=== PATIENT | male | born 1960 | race Caucasian/White ===

== ENCOUNTER → 2016-04-27 | Outpatient (REF) | payer BC | LOC: M LAB REF 17:01 | PROVIDERS: ATTEND Internal Medicine | DX: N52.9 Male erectile dysfunction, unspecified (principal) ==

== ENCOUNTER 2019-08-14 19:50 | Inpatient (IN) | payer BC ==
[~2019-08-14] VITALS: Ht 170.2 cm; Wt 72.1 kg
[~2019-08-14 19:50] MED LIST: HumaLOG INSULIN (NovoLOG) PER UNIT XX SCH
[2019-08-14] MEDS ORDERED: GLUC3SPR (19:59)
[2019-08-14] MEDS ORDERED: SILD100T PO (19:59)
[2019-08-14] MEDS ORDERED: ATOR40TA75 PO (19:59)
[2019-08-14] MEDS ORDERED: LISI-538 PO (19:59)
[2019-08-14] MEDS ORDERED: INSU100V2 INJ (19:59)
[2019-08-14] MEDS ORDERED: ASPI81CH33 PO (19:59)
[2019-08-14 20:25] LABS: BASO % 0.3 % (0.0-1.0); EOS % 0.2 % (0.0-3.0); HEMATOCRIT 41.4 % (42.0-52.0); HEMOGLOBIN 14.2 g/dl (13.5-17.5); LYMPH # 1.1 10^3/uL (1.5-5.0); LYMPH % 9.5 % (24.0-44.0); MEAN CORPUSCULAR HEMOGLOBIN 29.1 pg (27.0-33.0); MEAN CORPUSCULAR HGB CONC 34.3 g/dl (32.0-36.5); MEAN CORPUSCULAR VOLUME 84.8 fl (80.0-96.0); MONO # 0.6 10^3/uL (0.0-0.8); MONO % 4.9 % (0.0-5.0); NEUTROPHILS # 10.2 10^3/uL (1.5-8.5); NEUTROPHILS % 84.8 % (36.0-66.0); PLATELET COUNT, AUTOMATED 228 10^3/uL (150-450); RED BLOOD COUNT 4.88 10^6/uL (4.30-6.10)
[2019-08-14] MEDS ORDERED: METOCLOPRAMIDE INJ 10MG/2ML VIAL (J2765 PER 1) IV ONE (20:30)
[2019-08-14] MEDS ORDERED: GI COCKTAIL 50ML BTL(HYOSCYAMINE/MAALOX/LIDOCAINE VISCOUS)(1:3:1) PO ONE (20:30)
[2019-08-14 20:48] LABS: ALBUMIN 3.7 GM/DL (3.2-5.2); BILIRUBIN,DIRECT 0.2 MG/DL (0.0-0.2); BILIRUBIN,TOTAL 0.6 MG/DL (0.2-1.0); TOTAL PROTEIN 6.7 GM/DL (6.4-8.2)
--- NOTE | 2019-08-14 21:50 | REPVR ---
PROCEDURE INFORMATION: Exam: US Abdomen Limited, Right Upper Quadrant Exam date and time: 08/14/2019 9:40 PM Age: 58 years old Clinical indication: Abdominal pain; Acute; Additional info: Ruq pain TECHNIQUE: Imaging protocol: Real-time ultrasound of the abdomen with image documentation. Examination was focused on the right upper quadrant. COMPARISON: No relevant prior studies available. FINDINGS: Liver: The echogenicity of the liver is within normal limits. No liver lesion is identified from the images obtained. The contour of the liver is smooth. Gallbladder: The gallbladder is normal in appearance. No stones, masses, gallbladder wall thickening, or pericholecystic fluid are noted. No sonographic Hung's sign was reported by the fibre technologist. Common bile duct: The common bile duct is normal caliber measures 3 mm in diameter at the level of the rae hepatis. Pancreas: The imaged portion of the pancreas is unremarkable. The tail of pancreas is obscured by gas in the stomach and bowel. Right kidney: The right kidney is normal in appearance and measures 10.6 cm in length. There is no renal cortical thinning. The renal cortical echogenicity is within normal limits. No renal lesion is seen. There is no hydronephrosis. No obvious stones are seen in the renal collecting system. Intraperitoneal space: No free fluid is seen from the images obtained. IMPRESSION: No sonographic abnormality seen in the right upper quadrant of the abdomen. Electronically signed by: Kristian Moy On 08/14/2019 21:49:49 PM
[2019-08-14] MEDS ORDERED: MORPHINE 2 MG/ML 1ML VIAL (J2270) IV ONE (22:00)
[2019-08-14] MEDS ORDERED: ISOVUE-370 76% 100ML VIAL As Ordered ONE (22:02)
--- NOTE | 2019-08-14 22:46 | REPVR ---
PROCEDURE INFORMATION: Exam: CT Abdomen And Pelvis With Contrast Exam date and time: 08/14/2019 10:11 PM Age: 58 years old Clinical indication: Abdominal pain; Additional info: Upper abdominal pain; R/O colitis vs diverticulitis TECHNIQUE: Imaging protocol: Computed tomography of the abdomen and pelvis with intravenous contrast. Radiation optimization: All CT scans at this facility use at least one of these dose optimization techniques: automated exposure control; mA and/or kV adjustment per patient size (includes targeted exams where dose is matched to clinical indication); or iterative reconstruction. Contrast material: ISO 370; Contrast volume: 100 ml; Contrast route: IV; COMPARISON: GALLBLADDER US 08/14/2019 9:23 PM FINDINGS: Heart: No cardiomegaly or pericardial effusion. Lungs: The imaged portions of the lung bases are clear. The lungs were not fully imaged. Diaphragm: Intact. Liver: The attenuation of the liver is lower compared to the spleen, which can be seen with fatty liver infiltration. No liver lesion is seen. The contour of the liver is smooth. No hepatomegaly is noted. Gallbladder and bile ducts: No calcified gallstones are noted. No gallbladder wall thickening, pericholecystic fluid, or pericholecystic inflammatory changes are identified. No dilation of the bile ducts is noted. No calcified stones are seen in the common bile duct. Pancreas: Normal. No dilation of the main pancreatic duct is noted. There is no inflammatory fat stranding around the pancreas to suggest acute pancreatitis. Spleen: Normal. No splenomegaly is noted. Adrenals: Normal. No adrenal mass is noted. Kidneys and ureters: The kidneys are normal in appearance. No renal lesion is noted. No stones are noted in the kidneys or ureters. There is no hydronephrosis or hydroureter. There are no wedge-shaped areas of low attenuation in the kidneys to suggest pyelonephritis. There is no renal abscess or perinephric fluid collection. Stomach and bowel: The stomach is unremarkable. There are dilated loops of jejunum in the left side of the abdomen with air-fluid levels measuring up to 3.4 cm in diameter and with associated mesenteric edema. There is an abrupt transition point from dilated to nondilated jejunum in the left upper quadrant of the abdomen, and the distal decompressed loops of jejunum have thickened landis (image 27 of the coronal series 202) and this may be secondary to a jejunitis. There is colonic diverticulosis without evidence for diverticulitis. The descending colon and sigmoid colon are decompressed, limiting there optimal evaluation. Appendix: Normal. There is no evidence for appendicitis. Intraperitoneal space: There is a moderate amount of free fluid in the pelvis. Retroperitoneal space: No fluid collection. No mass. Vasculature: The abdominal aorta is patent, normal in caliber, and there is no dissection. The iliac arteries, common femoral arteries, renal arteries, celiac artery, superior mesenteric artery, and inferior mesenteric artery are patent. There are mild atherosclerotic calcifications. The common femoral veins, iliac veins, inferior vena cava, hepatic veins, portal veins, splenic vein, superior mesenteric vein, inferior mesenteric vein, and renal veins are patent. Lymph nodes: No enlarged lymph nodes. Bladder: There is thickening of the wall of the partially distended urinary bladder. No calculi are noted in the bladder. Reproductive: There are calcifications in the prostate gland. The seminal vesicles are unremarkable. Bones/joints: There is no fracture or dislocation. No suspicious osteolytic or osteoblastic lesion. Soft tissues: Unremarkable. No hernia. No soft tissue fluid collection. IMPRESSION: 1. Dilated loops of jejunum in the left side of the abdomen with an abrupt transition point in the left upper quadrant of the abdomen and there is thickening of the distal decompressed loops of jejunum. These findings may be secondary to a jejunitis causing an ileus or small-bowel obstruction more proximally. 2. Thickening of the wall of the urinary bladder, which may be secondary to its partially distended state, bladder wall hypertrophy, or cystitis. Correlation with urinalysis is suggested. 3. Colonic diverticulosis without evidence for diverticulitis. 4. Moderate amount of free fluid in the pelvis. Electronically signed by: Kristian Moy On 08/14/2019 22:45:57 PM
[2019-08-14] MEDS ORDERED: CIPROFLOXACIN 400 MG in IV 1 EA IV ONE (23:15)
[2019-08-14] MEDS ORDERED: metroNIDAZOLE 500 MG in IV 1 EA IV ONE (23:15)
--- NOTE | 2019-08-14 23:19 | HPEPDOC ---
[facility] Medical History & Physical Date of Admission August 14, 2019 Date of Service: August 14, 2019 Attending Physician: Halley Miles MD History and Physical CHIEF COMPLAINT: Abdominal pain HISTORY OF PRESENT ILLNESS: Patient is a 58-year-old male with past mental history of diabetes type 1, hypertension, peripheral neuropathy, erectile dysfunction who presented to [facility] with the chief complaint of increasing abdominal pain since this afternoon. The patient states abdominal pain starting 3-3:30 PM, new, diffuse across the abdomen, 8/10 on pain scale, intermittent, sharp in c haracter. Associated symptoms include heart burn, nausea without vomiting. Patient states to be drinking enough fluid at home. Last BM 11 AM, not passing gas since then but has burping. The patient denies ROS below. In ER, VS showed BP uncontrolled 175->200/70-90's, HR 90-110. Patient appeared anxious. CT abd/pelvis showed 1. Dilated loops of jejunum in the left side of the abdomen with an abrupt transition point in the left upper quadrant of the abdomen and there is thickening of the distal decompressed loops of jejunum, findings may be secondary to a jejunitis causing an ileus or small-bowel obstruction more proximally. There was also thickening of the wall of the urinary bladder, which may be secondary to its partially distended state, bladder wall hypertrophy, or cystitis. Correlation with UA was suggested. A moderate amount of free fluid in the pelvis as seen. WBC 12. Surgery was called and recommended NG tube with LIS. On exam, patient's abdominal pain was minimal, he denied nausea. Patient admits to having a lot of burping but no flatulance since this afternoon. Patient was admitted for further treatment of jejunitis, ileus vs. SBO. REVIEW OF SYSTEMS: CONSTITUTIONAL: Denies lack of energy, unexplained weight gain or weight loss, loss of appetite, fever, night sweats EYES: Denies eye drainage, eye pain, visual changes, dry/irritated eye EARS, NOSE, MOUTH, THROAT: Denies difficulty hearing, ringing in ears, mouth sores, loose teeth, sore throat, facial numbness or pain NECK: Denies swollen glands CARDIOVASCULAR: Denies irregular heartbeat, racing heart, chest pains, swelling of feet or legs, pain in legs with walking RESPIRATORY: Denies shortness of breath, night sweats, wheezing, sputum production, oxygen at home, coughing up blood, cough lasting > 1 month GASTROINTESTINAL: Denies constipation, bloody stool, diarrhea, vomiting GENITOURINARY: Denies painful urination, bloody urine, frequent urination, urgency, leaking urine, impotence MUSCULOSKELETAL: Denies joint pain, muscle pain, leg swelling INTEGUMENTARY: Denies rash, itching, new skin lesion, change in existing skin lesion, hair loss or increase, breast changes. NEUROLOGICAL: Denies headaches, dizziness, difficulty walking, numbness or tingling PSYCHIATRIC: Denies depression, anxiety, recurrent bad thoughts, mood swings, hallucinations PAST MEDICAL HISTORY: 1. Peripheral neuropathy 2. DM type I 3. HTN questionable 4. Erectile dysfunction 5. Environmental allergies PAST SURGICAL HISTORY: 1. Hernia repair x 3 FAMILY HISTORY: Father: healthy, Alive Mother: healthy, Alive. Siblings: Brother #1: prostate cancer, Alive. Brother #2: Type II DM SOCIAL HISTORY: Prior smoker, quit 3 months ago. Smoked cigarettes and cigars for > 50 years. Social alcohol use, denies illicit use. Lives with his in the surrounding area. Currently employed. No handicaps. Full Code. ALLERGIES: Please see below. HOME MEDICATIONS: Please see below. PHYSICAL EXAMINATION: CONSTITUTIONAL: Appears anxious, AAO x 3 EYES: PERRLA, EOM intact HENT, MOUTH: Normocephalic, atraumatic, moist mucous membranes, NG tube in place NECK: SUPPLE, no JVD, no lymphadenopathy, no carotid bruit CV: Regular rate and rhythm, S1S2 normal, no murmurs/rubs/gallops RESPIRATORY: Clear to auscultation bilaterally, no rales/rhonchi/wheezes GI: Insulin pump in LLQ, mild tenderness in the bilateral lower quadrants. Implanted glucometer present in the RUQ. BS positive in 4 quadrants, soft, nondistended, no rebound or guarding, no organomegaly : Deferred MUSCULOSKELETAL: Normal ROM. No cyanosis, clubbing, swelling, joint deformity, extremity edema INTEGUMENTARY: Intact, no rashes, no lesions, no erythema NEUROLOGIC: Cranial Nerves II-XII are intact, no focal deficits PSYCHIATRIC: Anxious mood LABORATORY DATA: Please see below IMAGING: CT abd/pelvis with contrast: 1. Dilated loops of jejunum in the left side of the abdomen with an abrupt transition point in the left upper quadrant of the abdomen and there is thickening of the distal decompressed loops of jejunum. These findings may be secondary to a jejunitis causing an ileus or small-bowel obstruction more proximally. 2. Thickening of the wall of the urinary bladder, which may be secondary to its partially distended state, bladder wall hypertrophy, or cystitis. Correlation with urinalysis is suggested. 3. Colonic diverticulosis without evidence for diverticulitis. 4. Moderate amount of free fluid in the pelvis ASSESSMENT: 58 y/o M admitted for further treatment of jejunitis, ileus vs. SBO. PLAN: 1. Abdominal pain 2/2 to jejunitis causing ileus vs. SBO. Pain has significantly improved. NPO. NG tube to intermittent suction, IVFs at 125 cc/hr, zofran PRN, Ciprofloxacin, flagyl IV. Surgery consulted. 2. DM type I. BS 200's. Patient was very hesitant to stop insulin pump, discussed with pharmacy. Will use home humalog insulin pump, uses 0.8 U/hr. Q6hr finger sticks, hypoglycemic protocol initiated as patient is currently NPO. 3. HTN, uncontrolled. Patient describes white coat syndrome type anxiety upon entering hospitals and clinics. states BP is always elevated and then after some time will improve. Hydralazine PRN for systolic BP >180 mmHg. 4. Urinary bladder wall thickening on CT, r/o cystitis. F/u UA. 5. GI px. PPI IV. 6. DVT px. Enoxaparin SC daily. DISPOSITION: Admitted under inpatient status. Surgery consulted. Plan is discharge home when medically improved. Vital Signs Vital Signs Date Time Temp Pulse Resp B/P (MAP) Pulse Ox O2 Delivery O2 Flow Rate FiO2 08/14/19 21:20 90 16 170/80 (110) 98 08/14/19 19:53 98.0 Room Air Laboratory Data Labs 24H Laboratory Tests 2 08/14/19 20:18: Immature Granulocyte % (Auto) 0.3, Neutrophils (%) (Auto) 84.8H, Lymphocytes (%) (Auto) 9.5L, Monocytes (%) (Auto) 4.9, Eosinophils (%) (Auto) 0.2, Basophils (%) (Auto) 0.3, Neutrophils # (Auto) 10.2H, Lymphocytes # (Auto) 1.1L, Monocytes # (Auto) 0.6, Eosinophils # (Auto) 0.0, Basophils # (Auto) 0.0, Nucleated Red Blood Cells % (auto) 0.0, Total Bilirubin 0.6, Direct Bilirubin 0.2, Aspartate Amino Transf (AST/SGOT) 18, Alanine Aminotransferase (ALT/SGPT) 40, Alkaline Phosphatase 60, Total Protein 6.7, Albumin 3.7, Albumin/Globulin Ratio 1.2, Lipase 50L 08/14/19 20:32: POC Glucose (Misc Panel) 213H, POC Sodium (Misc Panel) 136, POC Potassium (Misc Panel) 3.9, POC Chloride (Misc Panel) 98, POC Total CO2 (Misc Panel) 23.0, POC Blood Urea Nitrogen (Misc Panel 16, POC Ionized Calcium (Misc Panel) 4.8, POC Creatinine (Misc Panel) 1.0, POC Hematocrit (Misc Panel) 41.0 CBC/BMP Laboratory Tests 08/14/19 20:18 Home Medications Scheduled Aspirin (Aspirin) 81 Mg Tab.chew, 81 MG PO DAILY Atorvastatin Calcium (Atorvastatin Calcium) 40 Mg Tablet, 20 MG PO DAILY Glucagon (Baqsimi) 3 Mg [place], 3 MG NA ASDIRECTED Insulin Lispro (Insulin Lispro) 100 Unit/1 Ml Vial, 1 DOSE INJ ASDIRECTED PATIENT USES PUMP Lisinopril (Lisinopril) 20 Mg Tablet, 20 MG PO DAILY Scheduled PRN Sildenafil Citrate (Sildenafil Citrate) 100 Mg Tablet, 50 MG PO ASDIRECTED PRN for ERECTILE DYSFUNCTION Allergies Coded Allergies: No Known Allergies (Verified , 09/01/11) A-FIB/CHADSVASC A-FIB History Current/History of A-Fib/PAF?: No Current PO Anticoag Therapy: No Age/Risk Factor Scoring CHADSVASC: CHADSVASC Response (Comments) Value Age Risk Factor Age < 65 years old 0 Gender Risk Factor Male 0 Hx of CHF No 0 Hx of HTN Yes 1 Hx of Stroke/TIA/or VTE No 0 Hx of Diabetes Yes 1 Hx of Vascular Disease No 0 Total 2 Treatment Treatment ordered: Other Other anticoagulant ordered: enoxaparin Halley Miles MD August 14, 2019 23:19
[2019-08-15] MEDS ORDERED: [UNRECOGNIZED DRUG - OTHER] XX SCH (00:15)
[2019-08-15] MEDS ORDERED: ONDANSETRON 4MG/2ML VIAL IV PRN (00:15)
[2019-08-15] MEDS ORDERED: hydrALAZINE 20MG/ML 1ML VIAL (J0360 PER 20MG) IV PRN (00:15)
[2019-08-15] MEDS ORDERED: DEXTROSE 50% 50 ML SYRINGE IV PRN (00:15)
[2019-08-15] MEDS ORDERED: GLUCOSE 4GM CHEW TABLET PO PRN (00:15)
[2019-08-15] MEDS ORDERED: GLUCAGON INJ 1MG VIAL SC PRN (00:15)
[2019-08-15 01:23] LABS: INR 1.04; PROTHROMBIN TIME 13.3 SECONDS (11.8-14.0)
[2019-08-15 01:24] LABS: PARTIAL THROMBOPLASTIN TIME 24.3 SECONDS (25.0-38.4)
[2019-08-15 01:28] VITALS: BP 170/72
[2019-08-15] MEDS: NS 1,000 ML IV SCH ×4 (01:50→22:58)
[2019-08-15 04:48] LABS: APPEARANCE, URINE CLEAR (CLEAR); BACTERIA, URINE AUTO NEGATIVE (NEGATIVE); BILIRUBIN, URINE AUTO NEGATIVE (NEGATIVE); BLOOD, URINE BLOOD NEGATIVE (NEGATIVE); COLOR, URINE YELLOW (YELLOW); GLUCOSE, URINE (UA) AUTO 3+ mg/dL (NEGATIVE); KETONE, URINE AUTO 2+ mg/dL (NEGATIVE); LEUKOCYTE ESTERASE, URINE AUTO NEGATIVE (NEGATIVE); NITRITE, URINE AUTO NEGATIVE (NEGATIVE); PROTEIN, URINE AUTO NEGATIVE (NEGATIVE); RBC, URINE AUTO 0 /HPF (0-3); SPECIFIC GRAVITY URINE AUTO 1.042 (1.002-1.035); SQUAMOUS EPITHELIAL CELL UR AU 0 /HPF (0-6); UROBILINOGEN, URINE AUTO 0.2 mg/dL (0.0-2.0); WBC, URINE AUTO 0 /HPF (0-3)
[2019-08-15 05:05] LABS: HEMATOCRIT 41.7 % (42.0-52.0); HEMOGLOBIN 14.8 g/dl (13.5-17.5); MEAN CORPUSCULAR HEMOGLOBIN 30.4 pg (27.0-33.0); MEAN CORPUSCULAR HGB CONC 35.5 g/dl (32.0-36.5); MEAN CORPUSCULAR VOLUME 85.6 fl (80.0-96.0); PLATELET COUNT, AUTOMATED 234 10^3/uL (150-450); RED BLOOD COUNT 4.87 10^6/uL (4.30-6.10); WHITE BLOOD COUNT 16.8 10^3/uL (4.0-10.0)
[2019-08-15] MEDS ORDERED: ACETAMINOPHEN TAB 650MG DOSE (2X325MG) PO PRN (05:30)
[2019-08-15 05:33] LABS: ALBUMIN 3.6 GM/DL (3.2-5.2); ALT/SGPT 31 U/L (12-78); BILIRUBIN,TOTAL 0.9 MG/DL (0.2-1.0); BLOOD UREA NITROGEN 16 MG/DL (7-18); CALCIUM LEVEL 8.7 MG/DL (8.8-10.2); CARBON DIOXIDE LEVEL 22 MEQ/L (21-32); CHLORIDE LEVEL 99 MEQ/L (98-107); GLOMERULAR FILTRATION RATE > 60.0 (>49); GLUCOSE, FASTING 272 MG/DL (70-100); SODIUM LEVEL 134 MEQ/L (136-145); TOTAL PROTEIN 6.7 GM/DL (6.4-8.2)
[2019-08-15] MEDS: PANTOPRAZOLE 40MG VIAL (C9113 PER 1) IV SCH (05:41)
[2019-08-15 08:00] VITALS: BP 180/84
--- NOTE | 2019-08-15 08:03 | ECGEPIP ---
[facility] - ED Test Date: 2019-08-14 Pat Name: KHOA VALLES Department: Room: - Gender: Male Disaster Director: KHANH : 1960 Requested By: GILSON Gerardo Order Number: [id number] Reading MD: Oh Fuentes Measurements Intervals [place] Rate: 79 P: 44 KS: 149 QRS: 43 QRSD: 90 T: 51 QT: 368 QTc: 423 Interpretive Statements SINUS RHYTHM NO PRIORS FOR COMPARISON Electronically Signed on 08-15-2019 8:03:14 EDT by Oh Fuentes
[2019-08-15] MEDS ORDERED: ENOXAPARIN 40MG/0.4ML SYRINGE (J1650 PER 10MG) SC SCH (09:00)
[2019-08-15] MEDS ORDERED: MORPHINE 10 MG/ML 1ML VIAL (J2270) IV ONE (09:00)
[2019-08-15] MEDS ORDERED: KETOROLAC 30 MG/ML 1ML VIAL IV PRN (09:00)
[2019-08-15] MEDS ORDERED: MORPHINE 4 MG/ML 1ML VIAL/SYRINGE (J2270) IV PRN (09:00)
[2019-08-15] MEDS: NITROGLYCERIN 2% OINT 1 GM *U/D* PKT TOP SCH ×3 (09:32→17:38)
[2019-08-15] MEDS: metroNIDAZOLE 500 MG in IV 1 EA IV SCH ×2 (09:33→16:03)
[2019-08-15] MEDS: CIPROFLOXACIN 400 MG in IV 1 EA IV SCH ×2 (11:16→23:23)
[2019-08-15 11:42] VITALS: BP 148/70
[2019-08-15] MEDS ORDERED: hydrALAZINE 20MG/ML 1ML VIAL (J0360 PER 20MG) IV SCH (13:00)
[2019-08-15 14:45] VITALS: BP 176/90
[2019-08-15] MEDS ORDERED: cloNIDine HCL 0.3 MG/24 HR PATCH TOP SCH (16:00)
--- NOTE | 2019-08-15 17:52 | IPN ---
DATE: 08/15/2019 The patient overall states that he is doing much better today than he was doing yesterday. He feels less distended. He is not having any discomfort overall when he was evaluated earlier. Really had no tenderness to palpation yesterday. He felt some discomfort with palpation along the left side of the abdomen. He has had a maximum temperature (Tmax) of 99.5 and his white count did bump up to 16.8. Otherwise, he is not having any bowel movements. No flatusj. No diarrhea. His nasogastric (NG) tube output is dark bilious. On his physical exam, his lungs are clear anteriorly. Heart is regular. Abdomen is softer and almost flat at this point and much improved clinical exam of his abdomen. IMPRESSION/PLAN: The patient has improvement and starting to resolve his ileus/small bowel obstruction just given his physical exam. However, the concern at this point is the elevated white count and low-grade fever most consistent with an infectious presentation. He has been started on antibiotics and agree that this is reasonable to continue him on some antibiotics at this time, but with his improvement I anticipate that we should start to see some return of bowel function over the next 12-24 hours and will wait to see what this shows. If he does improve overnight, then probably we will discontinue the NG tube and start him on clear liquid is our next step for tomorrow, but otherwise we will see how he does at this point. Once again, he feels better. He looks clinically improved but will need to watch him closely given the increase of the white count and the low-grade temperature.
--- NOTE | 2019-08-15 18:20 | CR ---
DATE OF CONSULTATION: 08/14/2019 The patient presents to the emergency room with increasing abdominal pain, with diffuse severe crampy abdominal pain, heartburn, nausea without vomiting and essentially has not had any bowel movements since earlier in the day. No gas. No flatus. The patient has had no fevers, no chills. No recent exposure to gastrointestinal (GI) infections recently. The patient's past medical history is significant for history of peripheral neuropathy, history of diabetes mellitus, history of hypertension, history of erectile dysfunction, history of environmental allergies, history of hernia repairs. Medications include aspirin, atorvastatin, glucagon, insulin, lisinopril and Viagra. PHYSICAL EXAM: Reveals a 58-year-old male who looks stated age. HEENT: Reveals an atraumatic, normocephalic head with extraocular movements intact. Pupils are equal and reactive to light. Sclerae nonicteric. Oropharynx clear without exudate or lesions. Neck: Supple without adenopathy. Lungs: Clear to auscultation without crackles, wheeze or rhonchi. Heart is regular. Abdomen is distended, tympanitic. He does not really have any guarding or rebound but definitely is distended, and normally he states his abdomen is quite scaphoid. When I reviewed his CT scan, his stomach was quite full of fluid. His small bowel proximally is quite dilated, but distally in the small bowel, there is some inflammatory process within the distal small bowel that has an unusual presentation, and it almost like a hyperemic mucosa appearance to it of undetermined etiology, similar to an enteritis. The colon has air fluid and liquid present. He does have some free fluid in the pelvis consistent with this inflammatory process. His white count is elevated at 12,000 and chemistry is otherwise normal. No evidence of pancreatitis. No evidence of liver function test abnormality. IMPRESSION AND PLAN: The patient has evidence of a partial small bowel obstruction/ileus associated with some inflammatory changes within the small bowel consistent with an enteritis, and it may be that the dilatation of bowel is because of this inflammatory process that is causing this more proximal dilatation, but the dilatation is significant up into the stomach. But I do feel that if he gets any pain medication with sedation, he has a much higher risk of aspiration, thus will place a nasogastric (NG) tube and place to low intermittent suction overnight. Will see how he does with this and see how his abdomen distension improves/resolves over the next several hours. But at this point, he has no evidence of peritoneal signs. No surgical abdomen, and at this point, some mild distension without tenderness. I am not seeing an internal hernia, and the type of operations he has had previously were a laparoscopic left inguinal hernia making it less likely but not impossible that theetiology is secondary to adhesions. At this point, will see how he does with this process overnight. LISANDRO
[2019-08-15 19:01] VITALS: BP 172/82
[2019-08-15 22:00] VITALS: BP 148/70
--- NOTE | 2019-08-15 23:38 | IPN ---
DATE: 08/15/2019 He complains of diffuse abdominal pain rated 2/10. Had recently been given intravenous (IV) morphine by his nurse. No fevers overnight. No nausea or vomiting. Complains of some palpitations. No lightheadedness or dizziness. Temperature 99.1, pulse 119, sinus, respiratory rate 20, blood pressure 180/84, 96% on room air. Generally, patient is awake, alert, oriented times three, answering questions appropriately. Lungs are clear to auscultation. No wheezing, rales or rhonchi. Heart: S1, S2, sinus tachycardia. Abdomen is soft, tender bilateral lower quadrant. No rebound or guarding. Positive bowel sounds. Nasogastric tube in place. Extremities: No cyanosis, clubbing or pitting edema. LABORATORY DATA: White count 16.8, hemoglobin 14, hematocrit 41, platelet count 234. Sodium 134, potassium 5, chloride 99, bicarbonate 22, BUN 16, creatinine 1, glucose of 272. ASSESSMENT AND PLAN: A 58-year-old male with a history of hypertension, diabetes, peripheral neuropathy, erectile dysfunction, presents with abdominal pain, found to have duodenitis versus ileus or small bowel obstruction. Currently nothing by mouth with nasogastric tube and intravenous (IV) fluids. IV Cipro and Flagyl and supportive care with Zofran if needed. Type 1 diabetes. Blood sugar is in the 200s, currently on home Humalog insulin pump. Hypoglycemic protocol and IV fluids. Uncontrolled hypertension. On IV hydralazine every 4 hours with holding parameters for systolic pressure less than 150. Urinary bladder wall thickening. Rule out cystitis. Awaiting urinalysis (UA).
[2019-08-16] MEDS: metroNIDAZOLE 500 MG in IV 1 EA IV SCH ×3 (01:01→16:28)
[2019-08-16] MEDS: NITROGLYCERIN 2% OINT 1 GM *U/D* PKT TOP SCH ×2 (01:02→06:42)
[2019-08-16 06:00] VITALS: BP 146/79
[2019-08-16] MEDS: PANTOPRAZOLE 40MG VIAL (C9113 PER 1) IV SCH (06:42)
[2019-08-16] MEDS: NS 1,000 ML IV SCH (08:11)
[2019-08-16 10:45] LABS: BASO % 0.2 % (0.0-1.0); EOS # 0.1 10^3/uL (0.0-0.5); EOS % 0.6 % (0.0-3.0); HEMATOCRIT 36.3 % (42.0-52.0); MEAN CORPUSCULAR HEMOGLOBIN 30.3 pg (27.0-33.0); MEAN CORPUSCULAR HGB CONC 34.4 g/dl (32.0-36.5); MEAN CORPUSCULAR VOLUME 87.9 fl (80.0-96.0); MONO % 10.8 % (0.0-5.0); NEUTROPHILS # 6.8 10^3/uL (1.5-8.5); NEUTROPHILS % 76.9 % (36.0-66.0); PLATELET COUNT, AUTOMATED 196 10^3/uL (150-450); RED BLOOD COUNT 4.13 10^6/uL (4.30-6.10); WHITE BLOOD COUNT 8.8 10^3/uL (4.0-10.0)
[2019-08-16 10:50] LABS: HEMOGLOBIN 12.5 g/dl (13.5-17.5)
[2019-08-16] MEDS ORDERED: lisinopriL 20 MG TAB PO ONE (11:00)
[2019-08-16] MEDS: CIPROFLOXACIN 400 MG in IV 1 EA IV SCH ×2 (11:08→23:21)
[2019-08-16 11:16] LABS: BLOOD UREA NITROGEN 22 MG/DL (7-18); C REACTIVE PROTEIN QUANTITATIV 0.94 MG/DL (0.00-0.30); CALCIUM LEVEL 7.9 MG/DL (8.8-10.2); CARBON DIOXIDE LEVEL 30 MEQ/L (21-32); CHLORIDE LEVEL 109 MEQ/L (98-107); CREATININE FOR GFR 1.05 MG/DL (0.70-1.30); GLOMERULAR FILTRATION RATE > 60.0 (>49); GLUCOSE, FASTING 189 MG/DL (70-100); MAGNESIUM LEVEL 1.9 MG/DL (1.8-2.4); POTASSIUM SERUM 4.6 MEQ/L (3.5-5.1); SODIUM LEVEL 138 MEQ/L (136-145)
[2019-08-16 11:28] LABS: ERYTHROCYTE SEDIMENTATION RATE 16 mm/hr (0-20)
[2019-08-16 14:00] VITALS: BP 118/70
--- NOTE | 2019-08-16 14:08 | IPNPDOC ---
Date Seen The patient was seen on 08/16/19. Progress Note SUBJECTIVE: ambulated around the nurse's station without difficulty. no abdominal pain, passing flatus, and 150ml out via clamped NG tube, anxious to eat. pt says there is a little discomfort, but 2/10 on pain scale. OBJECTIVE: PHYSICAL EXAMINATION VITALS: PLS SEE BELOW Generally, patient is awake, alert, oriented times three, answering questions appropriately. Lungs are clear to auscultation. No wheezing, rales or rhonchi. Heart: S1, S2, sinus tachycardia. Abdomen is soft, nondistended. nontender No rebound or guarding. Positive bowel sounds. Nasogastric tube in place. Extremities: No cyanosis, clubbing or pitting edema. LABORATORY DATA:pls see below ASSESSMENT AND PLAN: A 58-year-old male with a history of hypertension, diabetes, peripheral neuropathy, erectile dysfunction, presents with abdominal pain, found to have duodenitis versus ileus or small bowel obstruction. Jejunitis with ileus vs partial sbo, improved with conservative mgt, ngt clamped without abd distention, and passing flatus. per surgery, ok to advance diet to clear liquids, and dc ng tube. pt has been ambulating well, and has little abdominal discomfort 2/10 on pain scale. Type 1 diabetes. resumed on po diet. clear liquids for now, but once tolerated, may change to consistent carbs. Uncontrolled hypertension. s/p nitroglycerin and catapres patches due to npo status. may resume home lisinopril now that he is taking oral intake. titrate bp meds for better control. Urinary bladder wall thickening. unremarkable ua. disposition 1-2 days . VS, I&O, 24H, [facility] Vital Signs/I&O Vital Signs Date Time Temp Pulse Resp B/P (MAP) Pulse Ox O2 Delivery O2 Flow Rate FiO2 08/16/19 11:08 154/95 08/16/19 06:00 98.1 89 18 97 08/15/19 14:45 Room Air I&O- Last 24 Hours up to 6 AM 08/16/19 06:00 Intake Total 2087.5 ml Output Total 1825 ml Balance 262.5 ml Laboratory Data 24H LABS Laboratory Tests 2 08/15/19 17:25: Bedside Glucose (Misc Panel) 185H 08/15/19 23:28: Bedside Glucose (Misc Panel) 214H 08/16/19 06:01: Bedside Glucose (Misc Panel) 230H 08/16/19 10:31: Immature Granulocyte % (Auto) 0.5, Neutrophils (%) (Auto) 76.9H, Lymphocytes (%) (Auto) 11.0L, Monocytes (%) (Auto) 10.8H, Eosinophils (%) (Auto) 0.6, Basophils (%) (Auto) 0.2, Neutrophils # (Auto) 6.8, Lymphocytes # (Auto) 1.0L, Monocytes # (Auto) 1.0H, Eosinophils # (Auto) 0.1, Basophils # (Auto) 0.0, Nucleated Red Blood Cells % (auto) 0.0, Erythrocyte Sedimentation Rate 16, Anion Gap , Glomer ular Filtration Rate > 60.0, Lactic Acid Level 0.8, Calcium Level 7.9L, Magnesium Level 1.9, C-Reactive Protein, Quantitative 0.94H 08/16/19 11:31: Bedside Glucose (Misc Panel) 195H CBC/BMP Laboratory Tests 08/16/19 10:31 FEDERICA DEAN MD August 16, 2019 14:08
[2019-08-16] MEDS: PANTOPRAZOLE 40MG TAB (PROTONIX) PO SCH (20:36)
[2019-08-16 22:00] VITALS: BP 143/68
[2019-08-17] MEDS: metroNIDAZOLE 500 MG in IV 1 EA IV SCH ×2 (00:37→08:07)
[2019-08-17 06:00] VITALS: BP 128/75
[2019-08-17 08:07] LABS: MEAN CORPUSCULAR HEMOGLOBIN 29.9 pg (27.0-33.0); MEAN CORPUSCULAR HGB CONC 33.3 g/dl (32.0-36.5); MEAN CORPUSCULAR VOLUME 89.7 fl (80.0-96.0); PLATELET COUNT, AUTOMATED 173 10^3/uL (150-450); RED BLOOD COUNT 3.68 10^6/uL (4.30-6.10); WHITE BLOOD COUNT 6.2 10^3/uL (4.0-10.0)
[2019-08-17] MEDS: PANTOPRAZOLE 40MG TAB (PROTONIX) PO SCH (08:09)
[2019-08-17 08:10] VITALS: BP 116/65
[2019-08-17 08:28] LABS: BLOOD UREA NITROGEN 17 MG/DL (7-18); CARBON DIOXIDE LEVEL 30 MEQ/L (21-32); CHLORIDE LEVEL 108 MEQ/L (98-107); CREATININE FOR GFR 1.14 MG/DL (0.70-1.30); GLOMERULAR FILTRATION RATE > 60.0 (>49); GLUCOSE, FASTING 137 MG/DL (70-100); POTASSIUM SERUM 4.1 MEQ/L (3.5-5.1); SODIUM LEVEL 144 MEQ/L (136-145)
[2019-08-17] MEDS ORDERED: AUGM875T28 PO (08:41)
[2019-08-17] MEDS ORDERED: BACITAB PO (08:42)
[2019-08-17] MEDS ORDERED: lisinopriL 20 MG TAB PO SCH (09:00)
--- NOTE | 2019-08-17 12:41 | IPN ---
DATE: The patient has made some good progress overnight. He feels a lot better and has done well with clear liquids. He had his nasogastric (NG) tube out. He is started on clear liquids and been doing well with clear liquids. He has had some bowel movements today and without nausea without vomiting and no abdominal distension. Overall, he has been afebrile. Vital signs are stable. Laboratory reveals a normal white count today. On his physical exam, abdomen is soft, nontender, nondistended. No guarding or rebound. No peritoneal signs are appreciated. IMPRESSION AND PLAN: The patient is resolving his enteritis issue. Will start him on some regular food and will see how he does overnight. If he is doing well in the morning, then he can be discharged to home. I anticipate, if his white count is still good by tomorrow and he has continued with his resolution of his enteritis picture that he should be able to be discharged home without need for continued antibiotics. Otherwise will see him as an outpatient.
--- NOTE | 2019-08-24 11:31 | DSES ---
DATE OF ADMISSION: 08/15/2019 DATE OF DISCHARGE: 08/17/2019 PRIMARY DISCHARGE DIAGNOSES: 1. Jejunitis with ileus. 2. Partial small-bowel obstruction. 3. Type 1 diabetes. 4. Hypertensive urgency. DISCHARGE MEDICATIONS: - Augmentin 875 twice a day - Bacid one tablet twice a day - aspirin 81 daily - atorvastatin 20 daily - Glucagon as needed - Lispro insulin - lisinopril/sildenafil as needed CONSULTANTS DURING THIS ADMISSION: Dr. Hussein, general surgeon. HOSPITAL COURSE: This is a 58-year-old male with a history of hypertension, diabetes, peripheral neuropathy, rectal constriction, presented with abdominal pain, found to have jejunitis with ileus or partial small-bowel obstruction. Patient was treated with nasogastric tube, intravenous (IV) fluids, nothing by mouth status. General surgeon, Dr. Hussein, was consulted and agreed with antibiotics. Patient had a white count of 12,000 and worsened at 16.8. He had no fever, no diarrhea. Patient improved clinically with decreased output through the nasogastric tube, which was 250 on admission and 150 after. Patient was given IV fluids, total of 1.3 liters on admission, 3.7 the next day, and 900 on the day of discharge. Patient had improvement clinically with decreased abdominal distention and pain. Nasogastric tube was clamped on 08/15/2019 and was started on clears diet on August 15. Patient tolerated this and was advanced to a regular diet on August 16 with nasogastric tube being removed. Patient was ambulating well with resolution of his symptoms. Right upper quadrant ultrasound was negative. CT of the abdomen showed jejunitis causing an ileus or small-bowel obstruction more proximally. Colonic diverticulosis without diverticulitis and moderate amount of free fluid in the pelvis. Patient was discharged in stable condition to followup with Dr. Hussein as outpatient. PHYSICAL EXAMINATION ON DISCHARGE: Temperature 99.5, pulse 79, respiratory rate 18, blood pressure 128/75, 96% on room air. GENERAL: Awake, alert, oriented to person, place, and time, answering questions appropriately. LUNGS: Clear to auscultation. No wheezes, rales, or rhonchi. HEART: S1, S2, sinus rhythm. ABDOMEN: Soft, nontender, nondistended. Positive bowel sounds. EXTREMITIES: No cyanosis, clubbing, or pitting edema. LABORATORY DATA: White count 6, hemoglobin 11, hematocrit 33, platelet count 173. Sodium 144, potassium 4, chloride 108, bicarbonate 30, BUN 17, creatinine 1.14, glucose of 137. IMAGING STUDIES: CT abdomen and pelvis: Jejunitis causing an ileus versus partial bowel obstruction. TIME SPENT ON DISCHARGE: 30 minutes. MTDD
== END 2019-08-17 11:48 | disposition home or self-care (01) | DRG 245 ==
LOC: M ED 19:50 → M ED INP 08-15 00:09 → ENRESERV 08-15 00:31 → M PCU 08-15 01:28 → M MSPAV 08-15 14:36
PROVIDERS: ADMIT Internal Medicine; ATTEND General Practice
DX: K50.018 Crohn's disease of small intestine with other complication (principal); E10.10 Type 1 diabetes mellitus with ketoacidosis without coma; K56.609 Unspecified intestinal obstruction, unspecified as to partial versus complete obstruction; E10.51 Type 1 diabetes mellitus with diabetic peripheral angiopathy without gangrene; I16.0 Hypertensive urgency; Z79.82 Long term (current) use of aspirin; Z79.899 Other long term (current) drug therapy; Z79.4 Long term (current) use of insulin; N52.9 Male erectile dysfunction, unspecified

== ENCOUNTER → 2019-09-27 | Outpatient (CLI) | payer BC ==
[~2019-09-27] MED LIST changes: +ASPI81CH33 PO; +ATOR40TA75 PO; +AUGM875T28 PO; +BACITAB PO; +E-Z-GAS II EFFERVESCENT PACKET (SODIUM BICARB./CITRIC ACID/SIMETHICONE) As Ordered ONE; +E-Z-HD 98% w/w 340GM SUSP BTL As Ordered ONE; +E-Z-PAQUE 96% w/w SUSP 176GM BTL As Ordered ONE; +GLUC3SPR; -HumaLOG INSULIN (NovoLOG) PER UNIT XX SCH; +INSU100V2 INJ; +LISI-538 PO; +SILD100T PO
--- NOTE | 2019-09-28 09:17 | REP ---
UPPER GI AIR CONTRAST AND SMALL BOWEL FOLLOW THROUGH The procedure was performed under the direct supervision of Dr. South. The images were reviewed with Dr. South The marketing technologist film shows no organomegaly or pathological masses. The intestinal gas pattern is non-specific. There is an insulin pump power pack noted overlying the left abdomen. High Liquid barium and gas producing crystals were given in the erect position as well as liquid barium in the prone oblique position in order to perform a double contrast upper GI examination. Additionally liquid barium was given at the end of the examination in order to perform a small bowel follow through. The oral and pharyngeal stages of deglutition are unremarkable. Esophageal transport is prompt and efficient and there is no esophagitis, stricture, mucosal ring or hiatal hernia. Gastroesophageal reflux is not demonstrated on this examination. The stomach landis are normally outlined . The rugal folds are smooth and regular. There is no gastritis neoplasm or ulcer disease. The duodenal landis are normally outlined . The mucosal folds are smooth and regular. There is no duodenitis pancreatitis peptic ulcer disease or neoplasm. The visualized portion of the proximal small bowel appears normal in course and caliber. The barium column was followed through the small bowel to the level of the terminal ileum. Small bowel transit time is approximately 15 minutes . During fluoroscopy gentle palpation shows all loops are freely movable and pliable. There are no fixed or angulated loops. The small bowel mucosal pattern is normal in course and caliber. There is no transition to suggest a partial small-bowel obstruction. Spot filming of the terminal ileum shows it to be unremarkable. Impression: Essentially unremarkable double contrast upper GI and small bowel follow through examination. 2 minutes of fluoro time was utilized for this procedure. Electronically Signed by LORIR Edwards 09/27/2019 03:40 P Electronically Signed by Deonte South MD 09/28/2019 09:08 A
== END ==
LOC: M RAD 07:32
PROVIDERS: ATTEND Surgery
DX: R10.84 Generalized abdominal pain (principal)

== ENCOUNTER 2020-02-11 14:29 | Emergency (ER) | payer BC ==
[~2020-02-11] VITALS: Ht 170.2 cm; Wt 70.5 kg
[2020-02-11 14:29] VITALS: BP 163/101
[~2020-02-11 14:29] MED LIST changes: -E-Z-GAS II EFFERVESCENT PACKET (SODIUM BICARB./CITRIC ACID/SIMETHICONE) As Ordered ONE; -E-Z-HD 98% w/w 340GM SUSP BTL As Ordered ONE; -E-Z-PAQUE 96% w/w SUSP 176GM BTL As Ordered ONE
[2020-02-11] MEDS ORDERED: PERCOCET 5MG/325MG TAB PO ONE (15:00)
[2020-02-11] MEDS ORDERED: BOOSTRIX/ADACEL VACCINE (DIPHTH/PERTUSS/ACELL/TETANUS) 0.5ML SYR IM ONE (15:00)
[2020-02-11] MEDS ORDERED: BACITRACIN OINTMENT 30GM TUBE TOP ONE (15:00)
[2020-02-11] MEDS ORDERED: IBUP-1022 PO (15:14)
[2020-02-11] MEDS ORDERED: BACI500O8 TOP (15:14)
[2020-02-11] MEDS ORDERED: IBUPROFEN 600MG TAB PO ONE (15:15)
== END 2020-02-11 15:38 | disposition home or self-care (01) ==
LOC: M ED 14:29
DX: T24.201A Burn of second degree of unspecified site of right lower limb, except ankle and foot, initial encounter (principal); T23.201A Burn of second degree of right hand, unspecified site, initial encounter; T31.0 Burns involving less than 10% of body surface; X03.0XXA Exposure to flames in controlled fire, not in building or structure, initial encounter; Y92.017 Garden or yard in single-family (private) house as the place of occurrence of the external cause; I11.9 Hypertensive heart disease without heart failure; E11.9 Type 2 diabetes mellitus without complications; Z79.4 Long term (current) use of insulin; Z79.899 Other long term (current) drug therapy

== ENCOUNTER → 2020-04-04 | Outpatient (REF) | payer BC ==
[~2020-04-04] MED LIST changes: +BACI500O8 TOP; +IBUP-1022 PO
== END ==
LOC: M LAB REF 16:53
PROVIDERS: ATTEND Internal Medicine
DX: E10.65 Type 1 diabetes mellitus with hyperglycemia (principal)

== ENCOUNTER → 2020-06-27 | Outpatient (CLI) | payer BC ==
[~2020-06-27] MED LIST changes: -LISI-538 PO; +LISI20TA33 PO
--- NOTE | 2020-06-27 09:09 | REP ---
INDICATION: PAIN COMPARISON: None. TECHNIQUE: AP, lateral, bilateral oblique, and coned-down views of the lumbar spine. FINDINGS: Alignment and lordosis maintained. Vertebral bodies are intact and there is no evidence for acute fracture/compression injury or subluxation. Oblique views cannot exclude bilateral L5 pars defects without associated spondylolisthesis. Generalized age-related changes are appreciated with minimal endplate sclerosis and minimal disc space narrowing suggested at L5-S1. IMPRESSION: 1. No acute fracture/compression injury or subluxation. 2. Suspected chronic bilateral L5 spondylolysis without spondylolisthesis. <Electronically signed by Clyde Serna > 06/27/20 [id number]
== END ==
LOC: M WUC 08:28
PROVIDERS: ATTEND Physician Assistant Medical
DX: M54.5 Low back pain (principal)

== ENCOUNTER → 2020-12-11 | Outpatient (REF) | payer BC ==
[2020-12-13 18:11] LABS: Lyme Disease IgG/IgM Antibodie <0.91 ISR (0.00-0.90); Lyme Disease IgM Ab Quantitati <0.80 index (0.00-0.79)
== END ==
LOC: M LAB REF 11:58
PROVIDERS: ATTEND Internal Medicine
DX: Z11.9 Encounter for screening for infectious and parasitic diseases, unspecified (principal); W57.XXXA Bitten or stung by nonvenomous insect and other nonvenomous arthropods, initial encounter

== ENCOUNTER → 2021-01-24 | Outpatient (CLI) | payer BC ==
--- NOTE | 2021-01-24 14:35 | REP ---
INDICATION: CHEST PAIN, CHRONIC SMOKER. COMPARISON: None. FINDINGS: The superior mediastinal structures are midline. The cardiac silhouette is unremarkable in size, shape, and position. The diaphragmatic surfaces of the lungs are regular, and the costophrenic angles are clear. The pulmonary beck are clear. The imaged osseous structures are intact. IMPRESSION: There is no acute cardiopulmonary disease. <Electronically signed by Mac Hughes > 01/24/21 [id number]
== END ==
LOC: M WUC 13:55
PROVIDERS: ATTEND Internal Medicine
DX: R07.9 Chest pain, unspecified (principal); F17.200 Nicotine dependence, unspecified, uncomplicated

== ENCOUNTER → 2021-09-02 | Outpatient (CLI) | payer BC | LOC: M WUC 15:13 | PROVIDERS: ATTEND Physician Assistant Medical | DX: K59.00 Constipation, unspecified (principal) ==

== ENCOUNTER → 2024-01-21 | Outpatient (REF) | payer MEDICARE ==
[~2024-01-21] MED LIST changes: -INSU100V2 INJ; +INSU100V6 INJ
== END ==
LOC: M LAB REF 21:00
PROVIDERS: ATTEND Physician Assistant
DX: L08.9 Local infection of the skin and subcutaneous tissue, unspecified (principal)